=== PATIENT | female | born 1980 | race Caucasian/White ===

== ENCOUNTER 2017-03-07 10:18 | Emergency (ER) | payer OTHER ==
[~2017-03-07] VITALS: Ht 165.1 cm; Wt 72.6 kg
[2017-03-07] MEDS ORDERED: RELAGESIC 5001 EACH PO (11:42)
== END 2017-03-07 12:05 | disposition home or self-care (01) ==
LOC: ER 10:18
DX: M54.5 Low back pain (principal)

== ENCOUNTER 2017-04-08 10:31 | Outpatient (CLI) | payer OTHER ==
[~2017-04-08 10:31] MED LIST: RELAGESIC 5001 EACH PO
== END 2017-04-08 10:47 | disposition home or self-care (01) ==
LOC: NUCLEAR 10:31
DX: R00.2 Palpitations (principal)

== ENCOUNTER 2021-12-17 04:46 | Day surgery (SDC) | payer OTHER ==
[~2021-12-17 04:46] MED LIST changes: +PROFERRIN-FORT1 EACH PO
== END 2021-12-17 11:00 | disposition home or self-care (01) ==
LOC: CIR.AMB 04:46
PROVIDERS: ATTEND Obstetrics & Gynecology
DX: N84.0 Polyp of corpus uteri (principal); Z20.822 Contact with and (suspected) exposure to COVID-19; Z88.8 Allergy status to other drugs, medicaments and biological substances; Z88.2 Allergy status to sulfonamides; Z86.16 Personal history of COVID-19

== ENCOUNTER 2023-02-26 01:27 | Emergency (ER) | payer OTHER ==
[~2023-02-26] VITALS: Ht 167.6 cm; Wt 90.7 kg
[2023-02-26] MEDS ORDERED: ANUSOL-HC25 MG RECTAL (05:15)
[2023-02-26] MEDS ORDERED: MIRALAX17 GM PO (05:17)
== END 2023-02-26 05:22 | disposition home or self-care (01) ==
LOC: ER 01:27
DX: K64.8 Other hemorrhoids (principal); K59.00 Constipation, unspecified; Z88.8 Allergy status to other drugs, medicaments and biological substances

== ENCOUNTER 2023-04-22 05:15 | Day surgery (SDC) | payer OTHER ==
[~2023-04-22 05:15] MED LIST changes: +ANUSOL-HC25 MG RECTAL; +MIRALAX17 GM PO
[2023-04-22] MEDS ORDERED: MIDAZOLAM HCL 2 MG/2 ML VIAL IV ONE (08:45)
[2023-04-22] MEDS ORDERED: DIPHENHYDRAMINE HCL 50 MG/ML VIAL 1ML IV ONE ×2 (08:45)
[2023-04-22] MEDS ORDERED: fentaNYL CITRATE 50 MCG/ML AMPUL IV PUSH ONE (08:45)
== END 2023-04-22 10:06 | disposition home or self-care (01) ==
LOC: AMB-ENDOS 05:15
PROVIDERS: ATTEND Colon & Rectal Surgery
DX: K92.2 Gastrointestinal hemorrhage, unspecified (principal); K92.1 Melena; K64.8 Other hemorrhoids

== ENCOUNTER 2024-06-24 11:14 | Emergency (ER) | payer OTHER ==
[~2024-06-24] VITALS: Ht 167.6 cm; Wt 90.7 kg
[2024-06-24 11:41] VITALS: BP 136/84; O2SAT 100
[2024-06-24] MEDS ORDERED: BARIUM SULFATE 450 ML ORAL.SUSP PO ONE (12:24)
[2024-06-24 12:56] LABS: URINE APPEARANCE Clear; URINE BILIRRUBIN Negative (NEGATIVE); URINE BLOOD Negative; URINE COLOR Yellow; URINE GLUCOSE Negative (NEGATIVE); URINE KETONE Negative (NEGATIVE); URINE LEUKOCYTE Negative; URINE NITRATE Negative; URINE PROTEIN Negative (NEGATIVE); URINE UROBILINOGEN 0.2 E.U./dl
[2024-06-24 13:02] LABS: URINE BACTERIA 74.6 uL (0.0-1933); URINE WBC 3.4 uL (0.0-23.2)
[2024-06-24 13:05] LABS: HEMATOCRIT 35.6 % (36.0-45.00); HEMOGLOBIN 11.3 g/dL (12.0-15.00); MEAN CELL VOLUME 73.1 fL (80.00-100.00); MEAN CORPUSCULAR HEMOGLOBIN 23.2 pg (27.00-32.0); MEAN CORPUSCULAR HGB CONC 31.7 g/dl (32.0-36.0); PLATELET COUNT 305 K/uL (150-450); RED BLOOD COUNT 4.87 M/uL (4.00-6.00)
[2024-06-24 13:06] LABS: RED CELL DISTRIBUTION WIDTH 31.3 % (11.5-14.5)
[2024-06-24 13:22] LABS: CREATININE SERUM 0.61 mg/dL (0.55-1.02); GFR 106.55; POTASSIUM 4.04 mEq/L (3.5-5.1)
[2024-06-24] MEDS ORDERED: ANALPRAM HC 2.530 GM RECTAL (17:36)
== END 2024-06-24 17:38 | disposition home or self-care (01) ==
LOC: ER 11:14
PROVIDERS: Emergency Medicine
DX: K62.5 Hemorrhage of anus and rectum (principal); Z88.0 Allergy status to penicillin; Z88.6 Allergy status to analgesic agent
CPT/HCPCS: 36415; 74177; Q9965